=== PATIENT | female | born 1970 | race Caucasian/White ===

== ENCOUNTER 2017-02-02 18:05 | Emergency (ER) | payer OTHER ==
[2017-02-02] MEDS ORDERED: IBUPROFEN 600 MG TABLET PO ONE (18:56)
--- NOTE | 2017-02-02 19:01 | Emergency Department Record ---
History of Present Illness - General Chief Complaint: Fall Injury Stated Complaint: LT AND RT LEG PAIN Time Seen by Provider: 02/02/17 18:54 Source: Patient Mode of Arrival: Wheelchair Limitations: No limitations - History of Present Illness Initial Comments: 46 yo female presents to ED for evaluation of a trip and fall resulting in injury to the left ankle and right lower leg. Patient reports that she was carrying boxes downstairs in a hurry when she caught her foot on a rug resulting in an inversion injury and fall. Patient reports pain to the left ankle and right lower leg, denies other injury. Patient has not taken anything for pain prior to arrival, and denies other injury on examination. Complaint: Fall Onset/Timin -: Minutes(s) Fall From: From height (distance) When Fall Occurred: Just prior to arrival Fall Witnessed: No Place Fall Occurred: Home Loss of Consciousness: None Prolonged Down Time?: No Location - Extremities: Left: Ankle, Right: Lower Leg Severity: Moderate Severity scale (1-10): 8 Associated Symptoms: Denies - [place] Coma Scale Eye Response: (4) Open spontaneously Motor Response: (6) Obeys commands Verbal Response: (5) Oriented [place] Total: 15 - Related Data Home Medications Medication Instructions Recorded Confirmed Last Taken Anxiety Medication 1 tab PO ASDIR 02/02/17 Unknown Blood Pressure Pill 1 tab PO ASDIR 02/02/17 Unknown Previous Rx's Medication Instructions Recorded Hydrocodone/Acetaminophen [Dunnellon 1 each PO Q6H PRN #15 tablet 02/02/17 7.5-325 Tablet] Ibuprofen [Motrin 600Mg] 600 mg PO Q6H #30 tablet 02/02/17 Allergies Allergy/AdvReac Type Severity Reaction Status Date / Time hydrocodone [From Vicodin] AdvReac NAUSEA AND Verified 02/02/17 18:25 VOMITING Travel Screening - Travel/Exposure Within Last 30 Days Have you traveled within the last 30 days?: No - Travel/Exposure Within Last Year Have you traveled outside the [place] in the last year?: No - Additonal Travel Details Have you been exposed to anyone with a communicable illness?: No - Travel Symptoms Symptom Screening: None Review of Systems Constitutional: Denies: Chills, Fever, Malaise, Night sweats Eyes: Denies: Eye discharge, Eye pain ENT: Denies: Congestion, Ear pain, Epistaxis Respiratory: Denies: Cough, Dyspnea Cardiovascular: Denies: Chest pain, Dyspnea on exertion Endocrine: Denies: Fatigue, Heat or cold intolerance Gastrointestinal: Denies: Abdominal pain, Nausea, Vomiting Genitourinary: Denies: Incontinence, Retention Musculoskeletal: Reports: Arthralgia, Joint swelling. Denies: Back pain, Gout Skin: Denies: Bruising, Change in color Neurological: Denies: Abnormal gait, Confusion, Headache Hematological/Lymphatic: Denies: Anemia, Blood Clots Past Medical History - SOCIAL HISTORY Smoking Status: Never smoker Alcohol Use: Occasional Drug Use: None - RESPIRATORY Hx Respiratory Disorders: No - CARDIOVASCULAR Hx Cardio Disorders: Yes Hx Hypertension: Yes - NEURO Hx Neuro Disorders: No - GI Hx GI Disorders: No - Hx Genitourinary Disorders: No - ENDOCRINE Hx Endocrine Disorders: No - MUSCULOSKELETAL Hx Musculoskeletal Disorders: No - PSYCH Hx Psych Problems: No - HEMATOLOGY/ONCOLOGY Hx Hematology/Oncology Disorders: No Family Medical History Any Significant Family History?: No Physical Exam - General General Appearance: Alert, Oriented x3, Cooperative, Moderate distress (tearful on examination due to her pain symptoms), Anxious Limitations: No limitations - Head Head exam: Atraumatic, Normocephalic, Normal inspection Head exam detail: negative: Abrasion, Contusion, Murphy's sign, General tenderness, Hematoma, Laceration - Eye Eye exam: Normal appearance. negative: Conjunctival injection, Periorbital swelling, Periorbital tenderness, Scleral icterus - ENT Ear exam: negative: Auricular hematoma, Auricular trauma Nasal Exam: negative: Active bleeding, Discharge, Dried blood, Foreign body Mouth exam: negative: Drooling, Laceration, Muffled voice, Tongue elevation - Neck Neck exam: Normal inspection. negative: Meningismus, Tenderness - Respiratory Respiratory exam: Normal lung sounds bilaterally. negative: Respiratory distress, Rhonchi, Stridor, Wheezes - Cardiovascular Cardiovascular Exam: Regular rate, Normal rhythm, Normal heart sounds - GI/Abdominal GI/Abdominal exam: Soft. negative: Rebound, Rigid, Tenderness - Rectal Rectal exam: Deferred - exam: Deferred - Extremities Extremities exam: Tenderness, Other (TTP and STS present to the left ankle laterally, patient also reports pain over the right proximal region of the lower extremity, no obvious deforities are noted, DPP are strong and present bilterally. Achilles tendons are intact bilaterally as well.). negative: Calf tenderness, Pedal edema - Back Back exam: Denies: CVA tenderness (R), CVA tenderness (L) - Neurological Neurological exam: Alert, Normal gait, Oriented X3 - Psychiatric Psychiatric exam: Anxious - Skin Skin exam: Normal color. negative: Abrasion Type of lesion: negative: abrasion Course Vital Signs 02/02/17 02/02/17 18:13 18:20 Temperature 97.6 F Pulse Rate 61 Pulse Rate [ 69 Pulse Ox Probe] Respiratory 16 20 Rate Blood Pressure 147/81 Blood Pressure 147/81 [Left Arm] Pulse Ox 100 97 - Reevaluation(s) Reevaluation #1: 02/02/17 20:31 Left ankle: STS laterally, no definite fracture Right lower extremity: Non-displaced fracture of the proximal fibula Patient updated on her radiology results, will place in sugar-tong splint and have the patient follow-up with Dr. Figueroa in 5-7 days as directed. Disposition Disposition: Discharge Clinical Impression: Left ankle sprain Qualifiers: Encounter type: initial encounter Involved ligament of ankle: calcaneofibular ligament Qualified Code(s): S93.412A - Sprain of calcaneofibular ligament of left ankle, initial encounter Fracture of proximal end of fibula Qualifiers: Encounter type: initial encounter Fracture type: closed Fracture morphology: unspecified fracture morphology Laterality: right Qualified Code(s): S82.831A - Other fracture of upper and lower end of right fibula, initial encounter for closed fracture Disposition: Home, Self-Care Condition: (2) Stable Instructions: Leg Fracture (ED) Additional Instructions: Return to ED if your symptoms worsen or if you have any concerns. Leave splint in place until seen by Dr. Figueroa. Follow-up with Dr. Figueroa in 5-7 days as directed. Dunnellon and Motrin 600 mg as directed. Prescriptions: Hydrocodone/Acetaminophen [Dunnellon 7.5-325 Tablet] 1 each PO Q6H PRN #15 tablet PRN Reason: Pain - Moderate (5-7) Ibuprofen [Motrin 600Mg] 600 mg PO Q6H #30 tablet Referrals: COSME FIGUEROA [DOCTOR OF OSTEOPATH] - [facility] [Provider Group] Forms: Patient Portal Access Time of Disposition: 20:36 Quality - Quality Measures Quality Measures: N/A - Blood Pressure Screening Does Patient Have Any of the Following: No Blood Pressure Classification: Hypertensive Reading Systolic Measurement: 153 Diastolic Measurement: 77 Screening for High Blood Pressure: < First Hypertensive BP, F/U Documented > [ G8950] First Hypertensive Follow-up Interventions: Referral to alternative/primary care provider.
[2017-02-02] MEDS ORDERED: HYDROCODONE/APAP 7.5/325MG TABLET PO ONE (21:04)
--- NOTE | 2017-02-04 08:21 | RADIOLOGY REPORT ---
EXAM: LEFT ANKLE COMPLETE HISTORY: LATERAL PAIN AND SWELLING POST FALL. TECHNIQUE: Three views of the left ankle were obtained. Comparison: None. Encounter: Initial. FINDINGS: There is normal bone mineralization. No definite acute fracture, dislocation, or destructive bone lesion is seen. On the oblique view there are a couple tiny calcific densities projecting distal to the tip of the medial malleolus. No donor site is seen. These are likely benign soft tissue calcifications rather than fracture fragments. The ankle mortise joint is symmetric. There is anterolateral soft tissue swelling. IMPRESSION: 1. NO DEFINITE ACUTE FRACTURE NOR DISLOCATION. THERE ARE TWO OR THREE TINY CALCIFIC DENSITIES PROJECTING DISTAL TO THE TIP OF THE MEDIAL MALLEOLUS SEEN ON THE OBLIQUE VIEW PROBABLY CHRONIC RATHER THAN AVULSION TYPE FRACTURES. 2. ANTEROLATERAL SOFT TISSUE SWELLING. JOB NUMBER: [id number] [facility]TDD
--- NOTE | 2017-02-04 08:25 | RADIOLOGY REPORT ---
EXAM: RIGHT LOWER LEG HISTORY: MID RIGHT LOWER LEG PAIN POST FALL TODAY. TECHNIQUE: AP and lateral views of the right tibia and fibula were obtained. Comparison: None. Encounter: Initial. FINDINGS: There is normal bone mineralization. There is a nondisplaced oblique fracture of the proximal shaft of the fibula suggested. No other evidence of fracture nor dislocation. The articular relations are maintained. IMPRESSION: NONDISPLACED OBLIQUE FRACTURE OF THE PROXIMAL SHAFT OF THE FIBULA SUGGESTED. JOB NUMBER: [id number] [facility]
== END 2017-02-02 21:14 | disposition home or self-care (01) ==
LOC: ER 18:05
DX: S82.831A Other fracture of upper and lower end of right fibula, initial encounter for closed fracture (principal); S93.412A Sprain of calcaneofibular ligament of left ankle, initial encounter; S50.311A Abrasion of right elbow, initial encounter; I10 Essential (primary) hypertension; W10.9XXA Fall (on) (from) unspecified stairs and steps, initial encounter; Y92.009 Unspecified place in unspecified non-institutional (private) residence as the place of occurrence of the external cause
CPT/HCPCS: 96366; 99283; 99284

== ENCOUNTER 2018-06-06 16:40 | Emergency (ER) | payer BC ==
[2018-06-06] MEDS ORDERED: LORAZEPAM 0.5 MG TABLET PO ONE (16:57)
[2018-06-06] MEDS ORDERED: ACETAMINOPHEN 1,000 MG/100 ML BTL IVPB ONE (16:57)
--- NOTE | 2018-06-06 16:58 | Emergency Department Record ---
History of Present Illness - General Chief Complaint: Palpitations Stated Complaint: PALPATATIONS Time Seen by Provider: 06/06/18 16:51 Source: Patient Mode of Arrival: Ambulatory Limitations: No limitations - History of Present Illness Initial Comments: The patient is here from [facility] due to not feeling well for about 10 days. She has had intermittent palpitations, anxiety, mild AGARWAL's, arm aching, dizziness , nausea and fatigue. The patient denies any chest pain, SOB, DOUG, fever, chills , neck pain, vomiting, or balance issues. Her anxiety has been worse recently but she states her home medicines have helped her also. MD Complaint: Palpitations Onset/Timin -: Days(s) Context: Other Associated Symptoms: Anxiety, Nausea/vomiting - Related Data Allergies Allergy/AdvReac Type Severity Reaction Status Date / Time hydrocodone [From Vicodin] AdvReac NAUSEA AND Verified 06/06/18 16:50 VOMITING Travel Screening - Travel/Exposure Within Last 30 Days Have you traveled within the last 30 days?: No Review of Systems Constitutional: Reports: Malaise. Denies: Chills, Fever Eyes: Denies: Eye discharge ENT: Denies: Congestion Respiratory: Denies: Cough, Dyspnea Cardiovascular: Reports: Palpitations. Denies: Chest pain, Dyspnea on exertion Endocrine: Reports: Fatigue Gastrointestinal: Reports: Nausea Genitourinary: Denies: Dysuria Musculoskeletal: Denies: Arthralgia Skin: Denies: Bruising Past Medical History - SOCIAL HISTORY Smoking Status: Never smoker Alcohol Use: None Drug Use: None - RESPIRATORY Hx Respiratory Disorders: No - CARDIOVASCULAR Hx Cardio Disorders: Yes Hx Hypertension: Yes - NEURO Hx Neuro Disorders: No Comment:: concussion - GI Hx GI Disorders: No - Hx Genitourinary Disorders: No - ENDOCRINE Hx Endocrine Disorders: No - MUSCULOSKELETAL Hx Musculoskeletal Disorders: No - PSYCH Hx Psych Problems: Yes Hx Anxiety: Yes Hx Depression: Yes (PTSD) - HEMATOLOGY/ONCOLOGY Hx Hematology/Oncology Disorders: No Family Medical History Any Significant Family History?: No Physical Exam - General General Appearance: Alert, Oriented x3, Cooperative, No acute distress - Head Head exam: Atraumatic, Normocephalic, Normal inspection - Eye Eye exam: Normal appearance, PERRL, EOMI - ENT Throat exam: Normal inspection. negative: Tonsillar erythema, Tonsillar exudate - Neck Neck exam: Normal inspection, Full ROM. negative: Lymphadenopathy, Meningismus (The neck is very supple.), Tenderness - Respiratory Respiratory exam: Normal lung sounds bilaterally. negative: Respiratory distress - Cardiovascular Cardiovascular Exam: Regular rate, Normal rhythm, Normal heart sounds - GI/Abdominal GI/Abdominal exam: Soft, Normal bowel sounds. negative: Tenderness - Extremities Extremities exam: Normal inspection, Full ROM, Normal capillary refill. negative: Tenderness - Back Back exam: Reports: Normal inspection - Neurological Neurological exam: Alert, Normal gait, Oriented X3, Other (Neg Drift and [place]omberg.). negative: Abnormal gait, Altered, Motor sensory deficit - Psychiatric Psychiatric exam: Anxious. negative: Agitated, Depressed Course Vital Signs 06/06/18 16:43 Temperature 98.0 F Pulse Rate 60 Respiratory 18 Rate Blood Pressure 197/97 Pulse Ox 98 - Reevaluation(s) Reevaluation #1: The patient is doing better and is resting comfortably with no AGARWAL or chest discomfort. She is feeling completely back to normal with no visual changes, dizziness, or weakness. I did discuss the xray and lab results with the patient and did recommend F/U later this week for recheck due to the nature of her symptoms. 2nd EKG: NSR at 55, Neg for ST-T changes. 06/06/18 18:30 Medical Decision Making - Data Complexity MDM Data: Labs Ordered and/or Reviewed, X-Ray Ordered and/or Reviewed, EKG Ordered and/or Reviewed - Lab Data Result diagrams: 06/06/18 17:00 06/06/18 17:00 - EKG Data -: EKG Interpreted by Me EKG: No Acute Changes - Radiology Data Radiology results: Report reviewed (CXR: Neg Head CT: Neg per Rad.) Disposition Disposition: Discharge Clinical Impression: Palpitations Disposition: Home, Self-Care Instructions: Heart Palpitations (ED) Additional Instructions: Please continue your regular medicines and see your family doctor later this week for recheck. Continue your regular medicines and return to the ER for any worsening symptoms. Forms: Patient Portal Access Time of Disposition: 18:38 Quality - Quality Measures Quality Measures: N/A - Blood Pressure Screening View Details: Yes Does Patient Have Any of the Following: Active Dx of HTN Blood Pressure Classification: Hypertensive Reading Systolic Measurement: 197 Diastolic Measurement: 97 Screening for High Blood Pressure: Patient Exclusion, Hx of HTN [G9744]
[2018-06-06 17:09] LABS: BASO % 0.5 % (0-6); EOS % 1.6 % (0-6); GRAN % 50.2 % (47-80); HEMATOCRIT 41.6 % (35.0-47.0); HEMOGLOBIN 13.8 gm/dl (11.6-16.0); LYMPH % 38.9 % (16-45); MEAN CELL VOLUME 91.4 fl (81-97); MEAN CORPUSCULAR HEMOGLOBIN 30.3 pg (27-33); MEAN CORPUSCULAR HGB CONC 33.2 g/dl (32-36); MEAN PLATELET VOLUME 9.8 fl (7.4-10.4); MONO % 8.8 % (0-9); PLATELET COUNT 342 K/uL (130-400); RED BLOOD COUNT 4.55 M/uL (3.80-5.40); RED CELL DISTRIBUTION WIDTH 14.6 % (11.5-14.5); WHITE BLOOD COUNT W/O DIFF 6.4 K/uL (4.2-12.2)
[2018-06-06 17:20] LABS: BLOOD UREA NITROGEN 14 mg/dL (6-20); CREATININE 0.6 mg/dL (0.5-0.9); EST GLOMERULAR FILTRATION RATE > 60 mL/min; TOTAL PROTEIN 7.5 g/dL (6.6-8.7)
[2018-06-06 17:22] LABS: GLUCOSE,RANDOM 92 mg/dL (74-109)
[2018-06-06 17:25] LABS: ALB/GLOB RATIO 1.3 (1.1-1.8); ALBUMIN 4.3 g/dL (4.0-5.0); ALKALINE PHOSPHATASE 88 U/L (35-104); ALT/SGPT 9 U/L (<33); AST/SGOT 12 U/L (10.0-35.0); CREATINE PHOSPHOKINASE 64 U/L (26-192)
[2018-06-06 17:29] LABS: CKMB < 1.0 ng/mL (<3.77)
[2018-06-06 17:36] LABS: THYROID STIMULATING HORMONE 2.82 uIU/mL (0.270-4.20)
--- NOTE | 2018-06-08 20:07 | RADIOLOGY REPORT ---
EXAM: CHEST 2 VIEWS HISTORY: FATIGUE, NAUSEA, AND HEADACHES. TECHNIQUE: Upright PA and lateral views of the chest. COMPARISON: None. FINDINGS: The cardiomediastinal silhouette is normal in size and configuration. The pulmonary vasculature is nondilated. The lungs and pleural spaces are clear. The osseous structures are intact. IMPRESSION: CHEST NEGATIVE FOR ACUTE CARDIOPULMONARY DISEASE. JOB NUMBER: [id number] [facility]TDD
--- NOTE | 2018-06-08 20:10 | CT SCAN REPORT ---
EXAM: CT SCAN HEAD WO CONTRAST HISTORY: HEADACHE, NAUSEA,, AND FATIGUE. TECHNIQUE: Routine noncontrast CT of the brain. COMPARISON: None. FINDINGS: The ventricles and subarachnoid spaces are normal in size. No area of abnormally increased or decreased or attenuation is noted throughout the brain substance. No abnormal extraaxial fluid collection is seen. No focal skull abnormality. The visualized paranasal sinuses and mastoid air cells are clear. The orbits as visualized are unremarkable. IMPRESSION: NEGATIVE NONCONTRAST CT APPEARANCE OF THE BRAIN. [facility]BER: [id number] [facility]
== END 2018-06-06 18:48 | disposition home or self-care (01) ==
LOC: ER 16:40
DX: R00.2 Palpitations (principal); R11.2 Nausea with vomiting, unspecified; R51 Headache; I10 Essential (primary) hypertension
CPT/HCPCS: 70450; 71046; 80053; 82550; 82553; 84443; 84484; 85025; 93005; 93010; 96374; 99284

== ENCOUNTER 2019-01-27 06:59 | Day surgery (SDC) | payer BC ==
[2019-01-27] MEDS ORDERED: PROPOFOL 10 MG/ML VIAL IV ONE (07:00)
[2019-01-27] MEDS ORDERED: LIDOCAINE 2% MDV (20MG/ML) 20ML VIAL IV ONE (07:00)
--- NOTE | 2019-01-30 07:20 | Operative Note ---
SURGEON: Kelly Odonnell MD OPERATION: COLONOSCOPY. INDICATIONS: This is a 48-year-old female with average risk for colorectal cancer who presented for screening colonoscopy. POSTOPERATIVE DIAGNOSES: 1. A 5 mm sessile polyp in the sigmoid colon that was removed by cold snare. 2. Two 2-3 mm sessile polyps in the rectum that were removed by cold biopsy forceps. 3. Left-sided colonic diverticulosis. ANESTHESIA: Sedation is per Anesthesia. Pulse oximetry was monitored throughout the procedure to maintain O2 saturation of 90% or greater. Supplemental oxygen was administered via nasal cannula. Cardiac and vital signs were monitored throughout the duration of the procedure, and they were stable. The procedure of colonoscopy and risks and alternatives of the procedure, including the risk of bleeding and perforation, among others, were explained to the patient who voiced understanding and agreed to have the procedure done. Physical examination was performed, and the patient was found stable for sedation. PROCEDURE: The patient was placed in the left lateral position. Sedation was initiated. A digital rectal exam was performed and showed some mild external hemorrhoids with no palpable rectal masses. An Olympus PCF-180AL colonoscope was then inserted into the rectum under direct visualization. It was advanced to the cecum without difficulty. The ileocecal valve and appendiceal orifice were identified and photographed. The colonic mucosa was carefully examined upon introduction of the colonoscope. The colonoscope was then withdrawn while carefully examining the colonic mucosal surfaces. The bowel preparation was good. The cecum, ascending colon, transverse colon, and descending colon mucosa appeared normal. There were scattered diverticula noted in the distal descending and sigmoid colon. In the sigmoid colon was a 5 mm sessile polyp that was noted and was removed by cold snare. The colonoscope was then withdrawn into the rectum, and two 2-3 mm sessile polyps were noted and they were removed by cold biopsy forceps. The colonoscope was then withdrawn and the procedure was terminated. The patient tolerated the procedure well without any immediate complications. The patient remained with stable vital signs and was transferred to the recovery room. RECOMMENDATIONS: 1. The patient should be on a high-fiber diet. 2. The patient is to have a repeat colonoscopy for surveillance in 3 or 5 or 10 years depending on the histology of the polyps. Thank you for allowing me to participate in the care of your patient. PRADIP
== END 2019-01-27 09:00 | disposition home or self-care (01) ==
LOC: HOP 06:59
PROVIDERS: ATTEND Internal Medicine Gastroenterology
DX: Z12.11 Encounter for screening for malignant neoplasm of colon (principal); D12.5 Benign neoplasm of sigmoid colon; K62.1 Rectal polyp; K57.30 Diverticulosis of large intestine without perforation or abscess without bleeding; I10 Essential (primary) hypertension